=== PATIENT | male | born 1965 | race Caucasian/White ===

== ENCOUNTER 2021-07-16 16:55 | Emergency (ER) | payer MEDICAID, OTHER ==
[~2021-07-16] VITALS: Ht 157.5 cm; Wt 57.6 kg
--- NOTE | 2021-07-16 17:30 | NUR ---
CALLED TO [facility],NO ANSWER
--- NOTE | 2021-07-16 17:49 | NUR ---
CALLED TO TRIAGE,NO ANSWER
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
--- NOTE | 2021-07-16 18:35 | NUR ---
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
[2021-07-16] MEDS ORDERED: HYDROCODONE/APAP 5/325MG TABLET ONE (19:22)
[2021-07-16] MEDS ORDERED: TDAP [DIPH/PERTUSSIS/TET] 0.5 ML VIAL IM ONE (19:22)
[2021-07-16] MEDS: TDAP [DIPH/PERTUSSIS/TET] 0.5 ML VIAL IM ONE (19:28)
[2021-07-16] MEDS: HYDROCODONE/APAP 5/325MG TABLET PO ONE (19:29)
--- NOTE | 2021-07-16 19:31 | NUR ---
REPORT GIVEN TO NURSE KWOK FOR SONG
--- NOTE | 2021-07-16 19:37 | NUR ---
PT TAKEN TO CT VIA HARSHA
--- NOTE | 2021-07-16 21:30 | NUR ---
PT OK TO BE DISCHARGE HOME PER DR SHAIKH. Patient discharged to home in stable condition. Written and verbal after care instructions given. Patient verbalizes understanding of instruction.
[2021-07-17 00:59] VITALS: BP 135/79
== END 2021-07-17 01:00 | disposition home or self-care (01) ==
LOC: ER 17:06
DX: S82.142A Displaced bicondylar fracture of left tibia, initial encounter for closed fracture (principal); S82.452A Displaced comminuted fracture of shaft of left fibula, initial encounter for closed fracture; S52.531A Colles' fracture of right radius, initial encounter for closed fracture; S82.492A Other fracture of shaft of left fibula, initial encounter for closed fracture; S82.832A Other fracture of upper and lower end of left fibula, initial encounter for closed fracture; F20.9 Schizophrenia, unspecified; F41.9 Anxiety disorder, unspecified; Z87.738 Personal history of other specified (corrected) congenital malformations of digestive system; V03.00XA Pedestrian on foot injured in collision with car, pick-up truck or van in nontraffic accident, initial encounter; Y93.01 Activity, walking, marching and hiking; Y92.488 Other paved roadways as the place of occurrence of the external cause; Y99.8 Other external cause status
CPT/HCPCS: 71046; 72190-TC; 73080-TC; 73110; 73564-TC; 73700-TC; 90715